=== PATIENT | female | born 1945 | race Caucasian/White ===

== ENCOUNTER 2016-08-28 13:33 | Emergency (ER) | payer MEDICARE ==
[~2016-08-28] VITALS: Ht 162.6 cm; Wt 81.7 kg
[~2016-08-28 13:33] MED LIST: ALLOPURINOL100 MG PO; ASPIRIN EC81 MG PO; COQ-10100 MG PO; COZAAR25 MG PO; DAILY VITAMIN1 EAC2 PO; GREEN COFFEE B400 MG PO; IMDUR30 MG PO; LEVOTHYROXINE25 MCG PO; OMEPRAZOLE20 MG PO; SIMVASTATIN10 MG PO; TOPROL XL50 MG PO; VITAMIN D1000 UNI1 PO
[2016-08-28] MEDS ORDERED: KEPPRA1000 MG PO (13:57)
[2016-08-28] MEDS ORDERED: OXYCODONE HCL5 MG PO (13:58)
[2016-08-28] MEDS ORDERED: BACTROBAN NASAL1 GM NAS (13:59)
== END 2016-08-28 16:29 | disposition home or self-care (01) ==
LOC: ED 13:33
DX: Z48.3 Aftercare following surgery for neoplasm (principal); D32.0 Benign neoplasm of cerebral meninges; E11.9 Type 2 diabetes mellitus without complications; Z88.0 Allergy status to penicillin; Z88.1 Allergy status to other antibiotic agents; Z79.899 Other long term (current) drug therapy
CPT/HCPCS: 70450; 99284

== ENCOUNTER 2022-02-21 14:14 | Emergency (ER) | payer MEDICARE, OTHER ==
[~2022-02-21] VITALS: Ht 162.6 cm; Wt 89.8 kg
[~2022-02-21 14:14] MED LIST changes: +ACETAMINOPHEN650 M1 PO; +ASPIR 8181 MG PO; +BACTROBAN NASAL1 GM NAS; +BISACODYL10 MG PR; +CARVEDILOL6.25 MG PO; +CINNAMON500 MG PO; +CLOPIDOGREL75 MG PO; +COZAAR50 MG PO; +CRESTOR10 MG PO; +D-20002000 UNIT PO; +DOCUSATE SODIU100 MG PO; +FAMOTIDINE20 MG PO; +FERROUS SULFAT325 MG PO; +FUROSEMIDE40 MG PO; +GENTLE LAXATIVE5 M1 PO; +GLUCAGEN1 M1 INJ; +GLUCOPHAGE XR750 MG PO; +GLUCOSAMIN-CHO1 EACH PO; +GLUCOSAMINE CH1 EAC1 PO; +GOLYTELY SOLU4000 ML PO; +HUMALOG100 UNIT/1 SUB-Q; +HUMULIN R100 UNIT/1 INJ; +ISOSORBIDE MONO30 MG PO; +K-TAB ER20 MEQ PO; +KEPPRA1000 MG PO; +LOVAZA1 GM PO; +MAGOX 400400 MG PO; +MILK OF MA400 MG/5 M PO; +OXYCODONE HCL5 MG PO; +PROBIOTIC1 EAC3 PO; +PROTONIX40 MG PO; +SYNTHROID50 MCG PO; +ULTRAM50 MG PO; +VENTOLIN HFA18 GM INH; +VITAMIN C1000 MG PO
--- NOTE | 2022-02-21 21:43 | EKG ---
[facility] [address] [facility] [place] [address] Signed Normal sinus rhythm Septal infarct , age undetermined Abnormal ECG No previous ECGs available Confirmed by Alban Nielsen MD () on 02/21/2022 9:43:20 PM Electronically Signed By: ALBAN NIELSEN MD [id number] PATIENT NAME: CHITRA COURTNEY Electrocardiogram DATE OF : 43 PHYSICIAN: ALBAN NIELSEN MD REPORT #: [id number] REPORT IS CONFIDENTIAL AND NOT TO BE RELEASED WITHOUT AUTHORIZATION
== END 2022-02-21 17:00 | disposition home or self-care (01) ==
LOC: ED 14:14
DX: R07.89 Other chest pain (principal); I25.10 Atherosclerotic heart disease of native coronary artery without angina pectoris; E11.9 Type 2 diabetes mellitus without complications; Z95.1 Presence of aortocoronary bypass graft; Z87.891 Personal history of nicotine dependence; Z88.8 Allergy status to other drugs, medicaments and biological substances; Z88.1 Allergy status to other antibiotic agents; Z88.5 Allergy status to narcotic agent; Z88.0 Allergy status to penicillin; Z79.899 Other long term (current) drug therapy; Z79.82 Long term (current) use of aspirin
CPT/HCPCS: 36415; 71045; 80053; 83880; 84484; 85025; 94640; 99285-25